=== PATIENT | female | born 2000 | race Caucasian/White ===

== ENCOUNTER 2020-05-16 17:00 | Emergency (ER) | payer BC ==
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
== END 2020-05-16 19:31 | disposition home or self-care (01) ==
LOC: ERS 17:00
DX: S01.112D Laceration without foreign body of left eyelid and periocular area, subsequent encounter (principal)
CPT/HCPCS: 70450; 86335